=== PATIENT | female | born 1945 | race African-American/Black ===

== ENCOUNTER 2016-11-14 20:40 | Inpatient (IN) | payer MEDICARE ==
[~2016-11-14] VITALS: Ht 175.3 cm; Wt 115.2 kg
[~2016-11-14 20:40] MED LIST: AMOXICILLIN500 MG ORAL; AUGMENTIN 875-1 EAC1 ORAL; OFLOXACIN5 ML LEFT EYE; POLYTRIM OP SOL10 ML LEFT EYE; ROBITUSSIN COU118 M4 PO
[2016-11-14 21:19] VITALS: BP 168/75
--- NOTE | 2016-11-14 21:25 | Emergency Room Report ---
History of Present Illness General Chief Complaint: Fever Source: Patient Present Illness HPI Patient is a 71-year-old female presented after increased fever and generalized weakness. Patient gradual onset of symptoms. Patient reported having been seen in her physician's office earlier in the day. Patient prior history of type 2 diabetes. Patient stated that she been having increased generalized malaise. She denied any dysuria or abdominal pain. Patient reported having prior lab studies performed at her doctor's office. She does not have any results this time. She denies chest pain or shortness of breath. Allergies: Coded Allergies: No Known Allergies (Unverified , 06/02/15) Patient History Past Medical History: see triage record Pertinent Family History: DM Last Menstrual Period: NO MORE Now: No : 1 Reviewed Nursing Documentation: PMH: Agreed, PSxH: Agreed Nursing Documentation-PMH Hx Hypertension: Yes Hx Diabetes: Yes Review of Systems All Other Systems: negative except mentioned in HPI Physical Exam Vital Signs Date Time Temp Pulse Resp B/P Pulse Ox O2 Delivery O2 Flow Rate FiO2 11/14/16 20:51 103.1 93 18 171/77 95 Room Air Sp02 EP Interpretation: reviewed, normal General Appearance: normal inspection, well appearing, no apparent distress, alert, GCS 15 Head: atraumatic ENT: normal ENT inspection, hearing grossly normal, normal voice Neck: normal inspection, full range of motion, supple, no bony tend Respiratory: normal inspection, lungs clear, normal breath sounds, no respiratory distress, no retraction, no wheezing Cardiovascular #1: regular rate, rhythm, no edema Gastrointestinal: normal inspection, normal bowel sounds, non tender, soft, no guarding, no hernia Genitourinary: no CVA tenderness Musculoskeletal: back normal, normal range of motion, other - 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 Differential diagnosis included viral syndrome, urinary tract infection, sepsis, gastroenteritis, among others.Because of complexity of patient's case laboratory testing and imaging studies were ordered.A laboratory testing was notable for low white blood count with a bandemia. Patient was noted to have evidence of urinary infection with presumed sepsis. The patient's lactic acid level to be elevated.Dr. Gay was contacted for inpatient management. Labs Test 11/14/16 21:18 11/14/16 21:30 Urine Color Yellow Urine Appearance Clear Urine pH 5 (4.5-8.0) Urine Specific [place] 1.020 (1.005-1.035) Urine Protein 3+ (NEGATIVE) Urine Glucose (UA) Negative (NEGATIVE) Urine Ketones 1+ (NEGATIVE) Urine Occult Blood 4+ (NEGATIVE) Urine Nitrite Positive (NEGATIVE) Urine Bilirubin 2+ (NEGATIVE) Urine Ictotest Negative Urine Urobilinogen 8 MG/DL (0.0-1.0) Urine Leukocyte Esterase 3+ (NEGATIVE) Urine RBC 10-15 /HPF (0 - 2) Urine WBC 5-10 /HPF (0 - 2) Urine Squamous Epithelial Cells Few /LPF (NONE/OCC) Urine Amorphous Sediment Few /LPF (NONE) Urine Bacteria Moderate /HPF (NONE) White Blood Count 2.5 K/UL (4.8-10.8) Red Blood Count 4.54 M/UL (4.20-5.40) Hemoglobin 13.5 G/DL (12.0-16.0) Hematocrit 39.0 % (37.0-47.0) Mean Corpuscular Volume 86 FL (80-99) Mean Corpuscular Hemoglobin 29.7 PG (27.0-31.0) Mean Corpuscular Hemoglobin Concent 34.6 G/DL (32.0-36.0) Red Cell Distribution Width 12.8 % (11.6-14.8) Platelet Count 156 K/UL (150-450) Mean Platelet Volume 8.0 FL (6.5-10.1) Neutrophils (%) (Auto) % (45.0-75.0) Lymphocytes (%) (Auto) % (20.0-45.0) Monocytes (%) (Auto) % (1.0-10.0) Eosinophils (%) (Auto) % (0.0-3.0) Basophils (%) (Auto) % (0.0-2.0) Differential Total Cells Counted 100 Neutrophils % (Manual) 60 % (45-75) Lymphocytes % (Manual) 25 % (20-45) Monocytes % (Manual) 4 % (1-10) Eosinophils % (Manual) 1 % (0-3) Basophils % (Manual) 0 % (0-2) Band Neutrophils 10 % (0-8) Platelet Estimate Adequate Platelet Morphology Normal Red Blood Cell Morphology Normal Sodium Level 136 mEQ/L (135-145) Potassium Level 3.7 mEQ/L (3.4-4.9) Chloride Level 94 mEQ/L (98-107) Carbon Dioxide Level 26 mEQ/L (20-30) Anion Gap 16 (5-15) Blood Urea Nitrogen 7 mg/dL (7-23) Creatinine 0.7 mg/dL (0.5-0.9) Estimat Glomerular Filtration Rate mL/min (>60) Glucose Level 132 mg/dL (74-106) Lactic Acid Level 2.00 mmol/L (0.66-2.22) Calcium Level 9.5 mg/dL (8.6-10.2) Total Bilirubin 1.1 mg/dL (0.0-1.2) Direct Bilirubin 0.5 mg/dL (0.1-0.3) Aspartate Amino Transf (AST/SGOT) 96 U/L (5-40) Alanine Aminotransferase (ALT/SGPT) 85 U/L (3-33) Alkaline Phosphatase 165 U/L (35-104) Total Creatine Kinase 230 U/L (26-140) Creatine Kinase MB < 1.5 ng/mL (< 3.8) Creatine Kinase MB Relative Index Troponin I < 0.30 ng/mL (<=0.30) Pro-B-Type Natriuretic Peptide 87 pg/mL (0-125) Total Protein 7.8 g/dL (6.6-8.7) Albumin 4.0 g/dL (3.5-5.2) Globulin 3.8 g/dL Albumin/Globulin Ratio 1.0 (1.0-2.7) Last Vital Signs Date Time Temp Pulse Resp B/P Pulse Ox O2 Delivery O2 Flow Rate FiO2 11/14/16 21:19 103.1 89 17 168/75 96 Room Air Status: unchanged Disposition: ADMITTED INPATIENT Condition: Efe Staton Nov 14, 2016 21:25
[2016-11-14 21:43] LABS: APPEARANCE,URINE CLEAR; KETONES,URINE 1+ (NEGATIVE); LEUKOCYTE ESTERASE ,URINE 3+ (NEGATIVE); NITRITE,URINE POSITIVE (NEGATIVE); PH,URINE 5 (4.5-8.0); PROTEIN,URINE 3+ (NEGATIVE); UROBILINOGEN,URINE 8 MG/DL (0.0-1.0)
[2016-11-14 21:46] LABS: MEAN CORPUSCULAR HEMOGLOBIN 29.7 PG (27.0-31.0); MEAN CORPUSCULAR HGB CONC 34.6 G/DL (32.0-36.0); MEAN CORPUSCULAR VOLUME 86 FL (80-99); PLATELET COUNT 156 K/UL (150-450); RED BLOOD COUNT 4.54 M/UL (4.20-5.40); RED CELL DISTRIBUTION WIDTH 12.8 % (11.6-14.8); WHITE BLOOD COUNT 2.5 K/UL (4.8-10.8)
[2016-11-14 21:58] LABS: ALANINE AMINOTRANSFERASE 85 U/L (3-33); ANION GAP 16 (5-15); ASPARTATE AMINO TRANSFERASE 96 U/L (5-40); CALCIUM 9.5 mg/dL (8.6-10.2); CARBON DIOXIDE 26 mEQ/L (20-30); CHLORIDE 94 mEQ/L (98-107); CREATININE 0.7 mg/dL (0.5-0.9); HEMOLYSIS 1; POTASSIUM 3.7 mEQ/L (3.4-4.9); SODIUM 136 mEQ/L (135-145); TOTAL PROTEIN 7.8 g/dL (6.6-8.7); TROPONIN I < 0.30 ng/mL (<=0.30)
[2016-11-14 22:01] LABS: AMORPHOUS SEDIMENT,UR FEW /LPF; BACTERIA,URINE MODERATE /HPF; SQUAMOUS EPITHELIAL CELL,UR FEW /LPF (NONE/OCC)
[2016-11-14 22:02] LABS: ICTOTEST NEGATIVE
[2016-11-14 22:04] LABS: REFLEX LACTIC ACID YES OR NO YES
[2016-11-14 22:09] LABS: CKMB < 1.5 ng/mL (< 3.8)
[2016-11-14 22:18] LABS: BAND NEUTROPHILS % (MANUAL) 10 % (0-8); BASOPHILS % (MANUAL) 0 % (0-2); EOSINOPHILS % (MANUAL) 1 % (0-3); LYMPHOCYTES % (MANUAL) 25 % (20-45); NEUTROPHILS % (MANUAL) 60 % (45-75); PLATELET ESTIMATE ADEQUATE; PLATELET MORPHOLOGY NORMAL; TOTAL CELLS COUNTED 100
[2016-11-14 22:19] LABS: BILIRUBIN,DIRECT 0.5 mg/dL (0.1-0.3)
[2016-11-14] MEDS ORDERED: cefTRIAXone 1 GM in NS 55 ML IVPB ONE (23:00)
[2016-11-14 23:15] VITALS: BP 141/79
[2016-11-15] VITALS (8 sets, daily range): BP systolic 120–151; BP diastolic 55–92
[2016-11-15] MEDS ORDERED: AMLODIPINE BESY10 MG ORAL (00:59)
[2016-11-15] MEDS ORDERED: CLONIDINE0.1 MG GT (00:59)
[2016-11-15] MEDS ORDERED: KLONOPIN1 MG ORAL (00:59)
[2016-11-15] MEDS ORDERED: METFORMIN HCL1000 M1 ORAL (00:59)
[2016-11-15] MEDS ORDERED: LOPRESSOR25 M1 ORAL (00:59)
[2016-11-15] MEDS ORDERED: SYNTHROID50 MCG ORAL (01:00)
[2016-11-15] MEDS ORDERED: XALATAN2.5 ML BOTH EYES (01:00)
[2016-11-15] MEDS ORDERED: Zosyn 3.375gm inj ONE (03:42)
[2016-11-15] MEDS ORDERED: Piperacillin/Tazobactam 3.375 GM in D5W 110 ML IVPB SCH (04:00)
[2016-11-15] MEDS: NovoLOG Insulin Flexpen SUBQ SCH ×4 (06:02→21:00)
[2016-11-15] MEDS ORDERED: NovoLOG Insulin Flexpen SUBQ SCH (06:30)
[2016-11-15] MEDS: Lactobacillus-GG tablet ORAL SCH ×2 (08:30→17:07)
--- NOTE | 2016-11-15 09:19 | Diagnostic Imaging Report ---
Indications: Shortness of breath Technique: Portable AP chest Findings: Comparison: 08/25/2013 Inspiratory effort has mildly decreased. Size of the cardiac silhouette has apparently increased. Pulmonary vasculature remains within normal limits. Lungs and pleura remain clear. 2 cm calcified nodule in region of azygos vein, mild calcification of aortic arch unchanged. IMPRESSION: Are mildly increased heart size may be technically related. Worsening cardiomyopathy versus developing acute heart failure must be considered. Upright PA and lateral chest radiographs with better inspiratory effort and optimal technique recommended for more complete evaluation. Otherwise no evidence of acute cardiopulmonary disease, unchanged Stable chronic changes as described
[2016-11-15 11:04] LABS: MEAN CORPUSCULAR HEMOGLOBIN 28.5 PG (27.0-31.0); MEAN CORPUSCULAR HGB CONC 32.5 G/DL (32.0-36.0); MEAN CORPUSCULAR VOLUME 88 FL (80-99); MEAN PLATELET VOLUME 7.2 FL (6.5-10.1); PLATELET COUNT 159 K/UL (150-450); RED BLOOD COUNT 4.47 M/UL (4.20-5.40); WHITE BLOOD COUNT 2.6 K/UL (4.8-10.8)
[2016-11-15 11:36] LABS: BAND NEUTROPHILS % (MANUAL) 0 % (0-8); BASOPHILS % (MANUAL) 0 % (0-2); EOSINOPHILS % (MANUAL) 0 % (0-3); LYMPHOCYTES % (MANUAL) 35 % (20-45); NEUTROPHILS % (MANUAL) 61 % (45-75); PLATELET ESTIMATE ADEQUATE; PLATELET MORPHOLOGY NORMAL; TOTAL CELLS COUNTED 100
[2016-11-15 11:37] LABS: ALANINE AMINOTRANSFERASE 73 U/L (3-33); ALBUMIN/GLOBULIN RATIO 0.9 (1.0-2.7); ANION GAP 14 (5-15); ASPARTATE AMINO TRANSFERASE 67 U/L (5-40); CALCIUM 9.1 mg/dL (8.6-10.2); CARBON DIOXIDE 27 mEQ/L (20-30); CHLORIDE 97 mEQ/L (98-107); CREATININE 0.7 mg/dL (0.5-0.9); HEMOLYSIS 39; POTASSIUM 3.8 mEQ/L (3.4-4.9); SODIUM 138 mEQ/L (135-145); TOTAL PROTEIN 7.1 g/dL (6.6-8.7)
[2016-11-15] MEDS: Piperacillin/Tazobactam 3.375 GM in D5W 110 ML IVPB SCH ×2 (13:54→21:59)
[2016-11-15] MEDS ORDERED: Tubing IV Secondary IV ONE (14:53)
[2016-11-15] MEDS: Heparin 5000 units/ml inj SUBQ SCH (21:17)
[2016-11-16 04:00] VITALS: BP 151/70
--- NOTE | 2016-11-16 04:18 | History and Physical Report ---
DATE OF ADMISSION: 11/14/2016 CHIEF COMPLAINT: Generalized weakness and viral syndrome. HISTORY OF PRESENT ILLNESS: The patient is a pleasant 71-year-old female. She has a history of diabetes and hypertensive heart disease. She initially saw Cardiology several days prior to admission with complaints of URI symptoms. She was given a Z-Dwight, asked to drink more fluids and rest. Her symptoms did not improve. presented to emergency room. On evaluation there, she was noted to have leukopenia and elevated liver function tests. The patient denied any abdominal pain. She did have a few white cells in her urine lab abnormalities improve with outpatient therapy. She has now been admitted for further evaluation and care. PAST MEDICAL HISTORY: As above. PAST SURGICAL HISTORY: None. CURRENT MEDICATIONS: Reconciled and reviewed. ALLERGIES: None. FAMILY HISTORY: None. SOCIAL HISTORY: There is no known history of tobacco, ethanol, or drugs. REVIEW OF SYSTEMS: General: Positive for fevers and chills. HEENT: No headaches or visual changes. Cardiopulmonary: No chest pain or shortness of breath. Gastrointestinal: No nausea or vomiting. Genitourinary: No urgency or frequency. Musculoskeletal: No joint pain or swelling. Neurologic: No evidence of seizures. PHYSICAL EXAMINATION: VITAL SIGNS: Temperature 98 degrees, blood pressure 146/77, pulse 92, and respirations 19. GENERAL: The patient is a well-developed female, in no apparent distress. HEART: Regular rate and rhythm. LUNGS: Clear. ABDOMEN: Soft. EXTREMITIES: Without clubbing, cyanosis, or edema. LABORATORY DATA: UA showed 5 to 10 WBCs. White count was 2.5. Sodium is 136, potassium 3.7, chloride 94, bicarbonate 26, BUN is 7, and creatinine was 0.7. AST was 96 and ALT was 85. Alkaline phosphatase of 165. ASSESSMENT: This is a pleasant female, who complains of generalized malaise and weakness, unclear etiology, may be secondary to viral syndrome and dehydration. She also has elevated liver function tests, unclear etiology, cannot rule out acute hepatitis. PLAN: Intravenous hydration and empiric antibiotics. Check an ultrasound of the abdomen. Monitor liver function test. Cardiology followup regarding the patient's blood pressure management. Continue outpatient diabetic regimen. Brando Malone M.D. DR: NOELLE JOB#: [id number] CC:
[2016-11-16] MEDS: Piperacillin/Tazobactam 3.375 GM in D5W 110 ML IVPB SCH ×3 (05:48→21:27)
[2016-11-16] MEDS: NovoLOG Insulin Flexpen SUBQ SCH ×4 (05:53→21:00)
[2016-11-16] MEDS: Lactobacillus-GG tablet ORAL SCH ×2 (07:54→17:24)
[2016-11-16] MEDS: Heparin 5000 units/ml inj SUBQ SCH ×2 (07:57→21:31)
[2016-11-16 08:00] VITALS: BP 125/65
--- NOTE | 2016-11-16 08:07 | General Progress Note ---
Assessment/Plan Problem List: (1) Fever ICD Codes: R50.9 - Fever, unspecified SNOMED: 240983837 (2) Sepsis ICD Codes: A41.9 - Sepsis, unspecified organism SNOMED: 09214696 Status: stable Assessment/Plan check abd gonzalo- results stil pending ct abd abx follow up cultures ivf pain rx advance diet? Subjective ROS Limited/Unobtainable: No Constitutional: Reports: fever, malaise, weakness HEENT: Reports: no symptoms Cardiovascular: Reports: no symptoms Gastrointestinal/Abdominal: Reports: abdominal pain Genitourinary: Reports: no symptoms Neurologic/Psychiatric: Reports: no symptoms Endocrine: Reports: no symptoms Hematologic/Lymphatic: Reports: no symptoms Allergies: Coded Allergies: No Known Allergies (Unverified , 06/02/15) All Systems: reviewed and negative except above Subjective feels "a little better." less abd pain. +low grade fever. all cultures negative so far. abd gonzalo not back yet Objective Last 24 Hour Vital Signs Date Time Temp Pulse Resp B/P Pulse Ox O2 Delivery O2 Flow Rate FiO2 11/16/16 04:00 100.0 73 16 151/70 98 Room Air 11/15/16 23:40 99.7 87 17 142/92 93 Room Air 11/15/16 19:42 100.2 75 16 131/56 93 Room Air 11/15/16 17:40 98.0 11/15/16 16:00 98.0 74 19 146/77 97 Room Air 11/15/16 11:42 98.2 67 19 120/55 98 Room Air 11/15/16 08:06 97.7 72 19 128/66 95 Room Air Intake and Output 11/15/16 11/16/16 19:00 07:00 Intake Total 795 ml 952.0 ml Balance 795 ml 952.0 ml Intake Oral 420 ml IV Total 375 ml 952.0 ml # Voids 3 2 Laboratory Tests 11/15/16 09:30: White Blood Count 2.6L, Red Blood Count 4.47, Hemoglobin 12.7, Hematocrit 39.2, Mean Corpuscular Volume 88, Mean Corpuscular Hemoglobin 28.5, Mean Corpuscular Hemoglobin Concent 32.5, Red Cell Distribution Width 13.0, Platelet Count 159, Mean Platelet Volume 7.2, Neutrophils (%) (Auto) , Lymphocytes (%) (Auto) , Monocytes (%) (Auto) , Eosinophils (%) (Auto) , Basophils (%) (Auto) , Differential Total Cells Counted 100, Neutrophils % (Manual) 61, Lymphocytes % ( Manual) 35, Monocytes % (Manual) 4, Eosinophils % (Manual) 0, Basophils % ( Manual) 0, Band Neutrophils 0, Platelet Estimate Adequate, Platelet Morphology Normal, Red Blood Cell Morphology Normal, Sodium Level 138, Potassium Level 3.8 , Chloride Level 97L, Carbon Dioxide Level 27, Anion Gap 14, Blood Urea Nitrogen 7, Creatinine 0.7, Estimat Glomerular Filtration Rate , Glucose Level 116H, Lactic Acid Level 1.00, Calcium Level 9.1, Total Bilirubin 1.0, Aspartate Amino Transf (AST/SGOT) 67H, Alanine Aminotransferase (ALT/SGPT) 73H, Alkaline Phosphatase 142H, Total Protein 7.1, Albumin 3.5, Globulin 3.6, Albumin/ Globulin Ratio 0.9L, Thyroid Stimulating Hormone (TSH) 3.260 Height (Feet): 5 Height (Inches): 9.00 Weight (Pounds): 254 General Appearance: WD/WN, alert Neck: supple Cardiovascular: regular rhythm Respiratory/Chest: lungs clear, normal breath sounds, no respiratory distress, no accessory muscle use Abdomen: normal bowel sounds, non tender, soft, no organomegaly, no mass Edema: no edema noted Arm (L), no edema noted Arm (R), no edema noted Leg (L), no edema noted Leg (R), no edema noted Pedal (L), no edema noted Pedal (R), no edema noted Generalized OSBALDO AVENDANO Nov 16, 2016 08:07
[2016-11-16 12:00] VITALS: BP 141/66
[2016-11-16] MEDS: Artificial Tears 1.4% Op Soln LEFT EYE PRN (14:56)
[2016-11-16 16:00] VITALS: BP 148/79
[2016-11-16 18:04] LABS: MEAN CORPUSCULAR HEMOGLOBIN 29.3 PG (27.0-31.0); MEAN CORPUSCULAR HGB CONC 33.8 G/DL (32.0-36.0); MEAN CORPUSCULAR VOLUME 87 FL (80-99); MEAN PLATELET VOLUME 7.2 FL (6.5-10.1); PLATELET COUNT 160 K/UL (150-450); RED CELL DISTRIBUTION WIDTH 12.7 % (11.6-14.8); WHITE BLOOD COUNT 3.3 K/UL (4.8-10.8)
[2016-11-16 20:04] VITALS: BP 144/64
[2016-11-16 20:56] LABS: BAND NEUTROPHILS % (MANUAL) 7 % (0-8); EOSINOPHILS % (MANUAL) 3 % (0-3); LYMPHOCYTES % (MANUAL) 27 % (20-45); NEUTROPHILS % (MANUAL) 58 % (45-75); PLATELET MORPHOLOGY NORMAL; TOTAL CELLS COUNTED 100
[2016-11-16 20:57] LABS: BASOPHILS % (MANUAL) 0 % (0-2); PLATELET ESTIMATE ADEQUATE
[2016-11-16] MEDS: guaiFENesin w/Codeine 5ml Liq ud ORAL PRN (21:33)
[2016-11-17 00:14] VITALS: BP 127/85
[2016-11-17 03:33] VITALS: BP 145/59
[2016-11-17] MEDS: Piperacillin/Tazobactam 3.375 GM in D5W 110 ML IVPB SCH ×3 (06:28→21:37)
[2016-11-17] MEDS: NovoLOG Insulin Flexpen SUBQ SCH ×4 (06:30→20:51)
[2016-11-17 07:54] LABS: BILIRUBIN,DIRECT 0.4 mg/dL (0.1-0.3); TOTAL PROTEIN 6.8 g/dL (6.6-8.7)
[2016-11-17 07:55] LABS: ALANINE AMINOTRANSFERASE 58 U/L (3-33); ALBUMIN/GLOBULIN RATIO 0.9 (1.0-2.7); ANION GAP 15 (5-15); ASPARTATE AMINO TRANSFERASE 55 U/L (5-40); CALCIUM 8.6 mg/dL (8.6-10.2); CARBON DIOXIDE 28 mEQ/L (20-30); CHLORIDE 94 mEQ/L (98-107); CREATININE 0.7 mg/dL (0.5-0.9); HEMOLYSIS 1; POTASSIUM 3.3 mEQ/L (3.4-4.9); SODIUM 137 mEQ/L (135-145)
[2016-11-17 08:07] VITALS: BP 128/53
--- NOTE | 2016-11-17 08:25 | Diagnostic Imaging Report ---
Indication: Abdominal pain Technique: Spiral acquisitions obtained through the abdomen and pelvis. Patient drank a limited amount of oral contrast No IV contrast utilized, per referring physician request.. Multiplanar reconstructions were generated. Total dose length product 1191 mGycm. CTDIvol(s) 19 mGy. Dose reduction achieved using automated exposure control Comparison: 10/05/2013 Findings: The appendix is normal there are scattered diverticula. No evidence of diverticulitis. No small bowel distention. No free or loculated intraperitoneal air or fluid is evident. There may be a small sliding-type hiatal hernia. Stomach, duodenum are unremarkable. Lack of IV contrast limits assessment of the solid organs. A calcification is seen within the liver. Gallbladder contains gallstones, also previously demonstrated. No biliary ductal dilatation. Pancreas is unremarkable. A calcification is seen within the spleen. The adrenals are unremarkable. The left kidney demonstrates a subcentimeter low-attenuation lesion in the upper pole, best appreciated on the coronal views, also evident previously in retrospect. No pelvic mass or adenopathy. The uterus is absent, presumably postsurgically. The bladder is unremarkable. The included lung bases are clear. Heart is borderline enlarged. The bones demonstrate degenerative proliferative changes of the thoracic and lumbar spine. Impression: No acute abnormality Cholelithiasis, also previously described Borderline cardiomegaly Evidence of old granulomatous disease within the liver and spleen Diverticulosis. No evidence of diverticulitis Equivocal small sliding-type hiatal hernia incidentally noted Subcentimeter low-attenuation lesion in the left renal upper pole, too small to characterize, most likely benign simple cortical cyst, also evident previously This agrees with the preliminary interpretation provided overnight by Dr. Kang The CT scanner at [facility] is accredited by the [employer] and the scans are performed using protocols designed to limit radiation exposure to as low as reasonably achievable to attain images of sufficient resolution adequate for diagnostic evaluation.
--- NOTE | 2016-11-17 08:32 | General Progress Note ---
Assessment/Plan Problem List: (1) Fever ICD Codes: R50.9 - Fever, unspecified SNOMED: 429812483 (2) Sepsis ICD Codes: A41.9 - Sepsis, unspecified organism SNOMED: 81227790 Status: stable, not improved Assessment/Plan ID eval for fevers check duplex legs abx follow up cultures ivf pain rx advance diet Subjective ROS Limited/Unobtainable: No Constitutional: Reports: malaise, weakness HEENT: Reports: no symptoms Cardiovascular: Reports: no symptoms Respiratory: Reports: no symptoms Gastrointestinal/Abdominal: Reports: abdominal pain Genitourinary: Reports: no symptoms Neurologic/Psychiatric: Reports: no symptoms Endocrine: Reports: no symptoms Hematologic/Lymphatic: Reports: anemia Allergies: Coded Allergies: No Known Allergies (Unverified , 06/02/15) All Systems: reviewed and negative except above Subjective continues to have intermittent fevers. all cultures negative so far.CT abd negative. on ivf. on clears. Objective Last 24 Hour Vital Signs Date Time Temp Pulse Resp B/P Pulse Ox O2 Delivery O2 Flow Rate FiO2 11/17/16 08:07 97.7 87 21 128/53 96 Room Air 11/17/16 04:29 99.5 11/17/16 03:33 100.2 86 18 145/59 96 Room Air 11/17/16 00:14 97.9 92 18 127/85 95 Room Air 11/16/16 20:04 99.1 72 18 144/64 97 Room Air 11/16/16 16:00 100.9 76 20 148/79 97 Room Air 11/16/16 12:00 97.9 73 20 141/66 98 Room Air Intake and Output 11/16/16 11/17/16 19:00 07:00 Intake Total 905.0 ml 1110.0 ml Balance 905.0 ml 1110.0 ml Intake Oral 240 ml 250 ml IV Total 665.0 ml 860.0 ml # Voids 5 4 # Bowel Movements 5 2 Laboratory Tests 11/16/16 17:30: White Blood Count 3.3L, Red Blood Count 4.20, Hemoglobin 12.3, Hematocrit 36.4L , Mean Corpuscular Volume 87, Mean Corpuscular Hemoglobin 29.3, Mean Corpuscular Hemoglobin Concent 33.8, Red Cell Distribution Width 12.7, Platelet Count 160, Mean Platelet Volume 7.2, Neutrophils (%) (Auto) , Lymphocytes (%) ( Auto) , Monocytes (%) (Auto) , Eosinophils (%) (Auto) , Basophils (%) (Auto) , Differential Total Cells Counted 100, Neutrophils % (Manual) 58, Lymphocytes % ( Manual) 27, Monocytes % (Manual) 5, Eosinophils % (Manual) 3, Basophils % ( Manual) 0, Band Neutrophils 7, Platelet Estimate Adequate, Platelet Morphology Normal, Red Blood Cell Morphology Normal 11/17/16 06:03: Sodium Level 137, Potassium Level 3.3L, Chloride Level 94L, Carbon Dioxide Level 28, Anion Gap 15, Blood Urea Nitrogen 5L, Creatinine 0.7, Estimat Glomerular Filtration Rate , Glucose Level 118H, Calcium Level 8.6, Total Bilirubin 1.0, Direct Bilirubin 0.4H, Aspartate Amino Transf (AST/SGOT) 54H, Alanine Aminotransferase (ALT/SGPT) 57H, Alkaline Phosphatase 124H, Total Protein 6.8, Albumin 3.4L, Globulin 3.6, Albumin/Globulin Ratio 0.9L Height (Feet): 5 Height (Inches): 9.00 Weight (Pounds): 254 Objective General Appearance: WD/WN, alert Neck: supple Cardiovascular: regular rhythm Respiratory/Chest: lungs clear, normal breath sounds, no respiratory distress, no accessory muscle use Abdomen: normal bowel sounds, non tender, soft, no organomegaly, no mass Edema: no edema noted Arm (L), no edema noted Arm (R), no edema noted Leg (L), no edema noted Leg (R), no edema noted Pedal (L), no edema noted Pedal (R), no edema noted Generalized OSBALDO AVENDANO Nov 17, 2016 08:32
[2016-11-17] MEDS: Lactobacillus-GG tablet ORAL SCH ×2 (09:09→16:54)
[2016-11-17] MEDS: guaiFENesin w/Codeine 5ml Liq ud ORAL PRN (09:09)
[2016-11-17] MEDS: Heparin 5000 units/ml inj SUBQ SCH ×2 (09:14→20:50)
--- NOTE | 2016-11-17 09:42 | Diagnostic Imaging Report ---
Indications: Abdominal pain Technique: Transabdominal real-time grayscale and duplex Doppler imaging of the upper abdomen and retroperitoneum was performed. Findings: Comparison: Noncontrast CT abdomen pelvis 10/05/2013. Liver 19 cm in length. Diffusely coarsened and increased parenchymal echogenicity. No focal lesion identified. Surface contour micronodularity excludable.. Gallbladder contains multiple small echogenic shadowing foci. No mural thickening or adjacent fluid collections. Sonographic Phelps sign reported as negative.. Bile ducts normal caliber. Common bile duct 6 mm. Pancreas head and body unremarkable; tail obscured. Spleen unremarkable. Right kidney unremarkable. Left kidney unremarkable. Abdominal aorta, intrahepatic portion of inferior vena cava patent, normal caliber. Duplex Doppler imaging demonstrates antegrade flow in splenic, portal, hepatic veins. No ascites. IMPRESSION: Hepatomegaly with parenchymal changes suggesting chronic hepatocellular disease, nonspecific. Associated cirrhosis not excludable. Correlate clinically. Cholelithiasis. No evidence of acute cholecystitis. Pancreatic tail obscured Remainder of exam unremarkable.
[2016-11-17 11:52] VITALS: BP 154/70
[2016-11-17] MEDS: Artificial Tears 1.4% Op Soln LEFT EYE PRN (15:02)
[2016-11-17 15:59] VITALS: BP 167/71
--- NOTE | 2016-11-17 16:39 | Consultation ---
DATE OF CONSULTATION: 11/17/2016 INFECTIOUS DISEASE CONSULTATION This consult is for coverage of Dr. Moran. PRIMARY ATTENDING PHYSICIAN: Jorge Gay M.D. REASON FOR CONSULT: Sepsis, fever, and leukopenia. HISTORY OF PRESENT ILLNESS: The patient is a 71-year-old female admitted on 11/14/2016 from home. The patient had upper respiratory symptoms before admission, had a visit to the primary care doctor and got Zithromax, but the condition did not improve. She developed fever one day before admission. She had some runny nose and dry coughing and had abnormal labs at the time of admission including leukopenia and elevated transaminase. PAST MEDICAL HISTORY: Significant for diabetes mellitus type 2 and hypertension. The patient is getting metformin at home for diabetes. PAST SURGICAL HISTORY: She had a history of hysterectomy. MEDICATIONS: Sodium chloride, artificial tears, Robitussin, heparin, Xalatan eye drops, Zosyn, insulin, lactobacillus, lorazepam, Tylenol, and clonidine. ALLERGIES: No known drug allergy. SOCIAL HISTORY: Lives at home with daughter. No history of alcohol, drug abuse, or smoking. The patient has a niece that has respiratory symptoms. REVIEW OF SYSTEMS: Runny nose, dry cough, and fever. No nausea. No vomiting. No chest pain. No problem passing urine. PHYSICAL EXAMINATION: VITAL SIGNS: Temperature 97.7 degrees, T-max is 100.9 degrees, blood pressure 128/53, and pulse is 87. HEAD AND NECK: Poor dentition with multiple decayed teeth. HEART: Regular. LUNGS: Clear. ABDOMEN: Obese and soft. EXTREMITIES: No edema. NEUROLOGIC: Awake, alert, and oriented x3, ambulatory. LABORATORY AND DIAGNOSTIC DATA: WBC 3.3, hemoglobin 12.3, hematocrit 36.4, and platelets 160,000. Sodium 137, potassium 3.3, chloride 94, bicarbonate 28, BUN 5, creatinine 0.7, and glucose 118. AST 54, ALT 57 and alkaline phosphatase is 124. Influenza A and B were negative. Blood culture x2 were negative. Urine culture showed mixed el, mixed gram-positive organism. Urine was positive for WBC 5-10, RBC of 10-15, and nitrates were positive. The patient had CT scan of the abdomen and pelvic that showed cholelithiasis and diverticulosis. Also had abdominal ultrasound that showed hepatomegaly and parenchymal changes in liver. IMPRESSION: Sepsis with fever and leukopenia. The patient may have some upper respiratory infection, has elevated transaminase level we will try to rule out hepatitis, has hepatomegaly, parenchymal liver disease, has cholelithiasis without cholecystitis, has diverticulosis, has diabetes mellitus type 2, and hypertension. RECOMMENDATION: We will continue Zosyn. We will followup hepatitis panel. We will follow up the culture. I thank Dr. Malone for involving me in the care of this patient. Bobby Dietrich M.D. DR: RACHEL JOB#: [id number] CC:
[2016-11-17 20:00] VITALS: BP 141/61
[2016-11-18] VITALS: BP 141/67
[2016-11-18 03:59] VITALS: BP 147/72
[2016-11-18] MEDS: Piperacillin/Tazobactam 3.375 GM in D5W 110 ML IVPB SCH ×3 (06:16→21:32)
[2016-11-18] MEDS: NovoLOG Insulin Flexpen SUBQ SCH ×4 (06:22→20:37)
[2016-11-18 07:53] VITALS: BP 141/61
[2016-11-18] MEDS: Lactobacillus-GG tablet ORAL SCH ×2 (08:13→17:13)
[2016-11-18] MEDS: Heparin 5000 units/ml inj SUBQ SCH ×2 (08:16→20:38)
--- NOTE | 2016-11-18 08:18 | General Progress Note ---
Assessment/Plan Problem List: (1) Fever ICD Codes: R50.9 - Fever, unspecified SNOMED: 766690114 (2) Sepsis ICD Codes: A41.9 - Sepsis, unspecified organism SNOMED: 67083952 Status: stable, not improved Assessment/Plan ID w/u check duplex legs abx follow up cultures ivf pain rx advance diet not stable for dc with fever Subjective ROS Limited/Unobtainable: No Constitutional: Reports: fever, malaise, weakness HEENT: Reports: no symptoms Cardiovascular: Reports: no symptoms Respiratory: Reports: no symptoms Gastrointestinal/Abdominal: Reports: no symptoms Genitourinary: Reports: no symptoms Neurologic/Psychiatric: Reports: no symptoms Endocrine: Reports: no symptoms Hematologic/Lymphatic: Reports: no symptoms Allergies: Coded Allergies: No Known Allergies (Unverified , 06/02/15) All Systems: reviewed and negative except above Subjective continues to have intermittent fevers. all cultures negative so far.CT abd negative. on ivf. on regular diet. ID noted. on iv abx. wants to go home Objective Last 24 Hour Vital Signs Date Time Temp Pulse Resp B/P Pulse Ox O2 Delivery O2 Flow Rate FiO2 11/18/16 07:53 99.9 82 19 141/61 97 Room Air 11/18/16 03:59 97.7 77 18 147/72 96 Room Air 11/18/16 01:08 100.2 11/18/16 00:00 101.1 76 18 141/67 98 Room Air 11/17/16 20:00 99.9 83 20 141/61 95 Room Air 11/17/16 16:50 167/71 11/17/16 15:59 98.8 80 19 167/71 97 Room Air 11/17/16 11:52 99.5 72 21 154/70 99 Room Air Intake and Output 11/17/16 11/18/16 19:00 07:00 Intake Total 1190.0 ml 1485.0 ml Balance 1190.0 ml 1485.0 ml Intake Oral 720 ml 600 ml IV Total 470.0 ml 885.0 ml # Voids 4 4 # Bowel Movements 1 Height (Feet): 5 Height (Inches): 9.00 Weight (Pounds): 254 Objective General Appearance: WD/WN, alert Neck: supple Cardiovascular: regular rhythm Respiratory/Chest: lungs clear, normal breath sounds, no respiratory distress, no accessory muscle use Abdomen: normal bowel sounds, non tender, soft, no organomegaly, no mass Edema: no edema noted Arm (L), no edema noted Arm (R), no edema noted Leg (L), no edema noted Leg (R), no edema noted Pedal (L), no edema noted Pedal (R), no edema noted Generalized OSBALDO AVENDANO Nov 18, 2016 08:18
[2016-11-18 11:48] VITALS: BP 139/57
[2016-11-18 16:17] VITALS: BP 149/72
[2016-11-18 20:00] VITALS: BP 138/61
[2016-11-18] MEDS ORDERED: KCl 10% 20 mEq/15ml liquid ORAL ONE (23:00)
[2016-11-18] MEDS: TraZODone HCl 25 mg tablet ORAL SCH (23:45)
[2016-11-19] VITALS: BP 140/63
[2016-11-19 04:00] VITALS: BP 157/89
--- NOTE | 2016-11-19 04:48 | Progress Note ---
DATE: 11/18/2016 CARDIOLOGY PROGRESS NOTE SUBJECTIVE: The patient is very anxious. She cannot sleep. She wants to leave the hospital. She complains of shortness of breath. OBJECTIVE: VITAL SIGNS: Blood pressure 141/61, pulse 82, and respirations 19. NECK: Supple. LUNGS: Clear. CARDIAC: Regular. Normal S1 and S2 with a fourth heart sound. ABDOMEN: Soft. EXTREMITIES: Trace dependent lower extremity edema. LABORATORY AND DIAGNOSTIC DATA: CT of the abdomen was unremarkable. Laboratories were reviewed. IMPRESSION: 1. Leukopenia. 2. Fevers. 3. Transaminitis. 4. Dyspnea. 5. Hypertensive heart disease. 6. Type 2 diabetes mellitus. PLAN: 1. Empiric antibiotics. 2. Venous duplex study. 3. DVT prophylaxis. 4. Antipyretics. 5. Cautious hydration. 6. Insulin coverage by sliding scale. 7. Angiolytics. Jorge Gay M.D. DR: LILLI JOB#: [id number] CC:
[2016-11-19] MEDS: Piperacillin/Tazobactam 3.375 GM in D5W 110 ML IVPB SCH ×3 (05:57→20:54)
[2016-11-19] MEDS: NovoLOG Insulin Flexpen SUBQ SCH ×4 (06:33→20:53)
[2016-11-19 07:52] LABS: BASOPHILS % (AUTO) 1.2 % (0.0-2.0); EOSINOPHILS % (AUTO) 1.5 % (0.0-3.0); LYMPHOCYTES % (AUTO) 20.9 % (20.0-45.0); MEAN CORPUSCULAR HEMOGLOBIN 27.8 PG (27.0-31.0); MEAN CORPUSCULAR HGB CONC 32.1 G/DL (32.0-36.0); MEAN CORPUSCULAR VOLUME 87 FL (80-99); MONOCYTES % (AUTO) 5.6 % (1.0-10.0); NEUTROPHILS % (AUTO) 70.9 % (45.0-75.0); PLATELET COUNT 289 K/UL (150-450); RED BLOOD COUNT 4.55 M/UL (4.20-5.40); RED CELL DISTRIBUTION WIDTH 12.8 % (11.6-14.8); WHITE BLOOD COUNT 5.7 K/UL (4.8-10.8)
[2016-11-19 08:15] VITALS: BP 150/59
[2016-11-19 08:16] LABS: ALANINE AMINOTRANSFERASE 53 U/L (3-33); ALBUMIN/GLOBULIN RATIO 0.8 (1.0-2.7); ANION GAP 16 (5-15); ASPARTATE AMINO TRANSFERASE 52 U/L (5-40); CALCIUM 8.8 mg/dL (8.6-10.2); CARBON DIOXIDE 26 mEQ/L (20-30); CHLORIDE 88 mEQ/L (98-107); CREATININE 0.7 mg/dL (0.5-0.9); HEMOLYSIS 7; POTASSIUM 3.6 mEQ/L (3.4-4.9); SODIUM 130 mEQ/L (135-145); TOTAL PROTEIN 7.4 g/dL (6.6-8.7)
[2016-11-19] MEDS: Lactobacillus-GG tablet ORAL SCH ×2 (09:34→17:59)
[2016-11-19] MEDS: Heparin 5000 units/ml inj SUBQ SCH ×2 (09:35→20:52)
--- NOTE | 2016-11-19 11:19 | Diagnostic Imaging Report ---
Indication: Chest pain Technique: One view of the chest Comparison: 11/14/2016 Findings: Less optimal inspiration currently, with some crowding of bronchovascular markings. There is some atelectasis at the right lung base. No definite acute infiltrates or effusions. Heart size is upper limits of normal Impression: Hypoventilatory exam. No definite acute process
--- NOTE | 2016-11-19 11:56 | Infectious Diseases Prog Note ---
Assessment/Plan Assessment/Plan antibiotics : zosyn A 1. UTI 2. cholangitis 3. DM 4. HTN P 1. continue zosyn 2. will follow up cultures 3. suggest GI evaluation Subjective Constitutional: Denies: chills, fever HEENT: Reports: congestion Respiratory: Denies: dry cough, shortness of breath Gastrointestinal/Abdominal: Denies: diarrhea, nausea, vomiting Musculoskeletal: Reports: pain Allergies: Coded Allergies: No Known Allergies (Unverified , 06/02/15) Objective Vital Signs Last 24 Hour Vital Signs Date Time Temp Pulse Resp B/P Pulse Ox O2 Delivery O2 Flow Rate FiO2 11/19/16 08:15 97.7 90 20 150/59 95 Room Air 11/19/16 04:00 98.6 94 20 157/89 93 Room Air 11/19/16 00:00 99.0 78 20 140/63 96 Room Air 11/18/16 20:00 99.1 79 20 138/61 95 Room Air 11/18/16 16:17 98.2 81 20 149/72 97 Room Air Height (Feet): 5 Height (Inches): 9.00 Weight (Pounds): 254 Respiratory/Chest: lungs clear Cardiovascular: normal rate, regular rhythm, no gallop/murmur Abdomen: soft, non tender Extremities: other - + edema Microbiology Date/Time Source Procedure Growth Status 11/16/16 17:45 Blood Blood Culture - Preliminary NO GROWTH AFTER 48 HOURS Resulted 11/16/16 17:30 Blood Blood Culture - Preliminary NO GROWTH AFTER 48 HOURS Resulted Laboratory Tests Test 11/19/16 06:30 White Blood Count 5.7 K/UL (4.8-10.8) Red Blood Count 4.55 M/UL (4.20-5.40) Hemoglobin 12.6 G/DL (12.0-16.0) Hematocrit 39.4 % (37.0-47.0) Mean Corpuscular Volume 87 FL (80-99) Mean Corpuscular Hemoglobin 27.8 PG (27.0-31.0) Mean Corpuscular Hemoglobin Concent 32.1 G/DL (32.0-36.0) Red Cell Distribution Width 12.8 % (11.6-14.8) Platelet Count 289 K/UL (150-450) Mean Platelet Volume 7.0 FL (6.5-10.1) Neutrophils (%) (Auto) 70.9 % (45.0-75.0) Lymphocytes (%) (Auto) 20.9 % (20.0-45.0) Monocytes (%) (Auto) 5.6 % (1.0-10.0) Eosinophils (%) (Auto) 1.5 % (0.0-3.0) Basophils (%) (Auto) 1.2 % (0.0-2.0) Sodium Level 130 mEQ/L (135-145) L Potassium Level 3.6 mEQ/L (3.4-4.9) Chloride Level 88 mEQ/L (98-107) L Carbon Dioxide Level 26 mEQ/L (20-30) Anion Gap 16 (5-15) H Blood Urea Nitrogen 6 mg/dL (7-23) L Creatinine 0.7 mg/dL (0.5-0.9) Estimat Glomerular Filtration Rate mL/min (>60) Glucose Level 122 mg/dL (74-106) H Calcium Level 8.8 mg/dL (8.6-10.2) Magnesium Level 2.1 mg/dL (1.7-2.5) Total Bilirubin 0.9 mg/dL (0.0-1.2) Aspartate Amino Transf (AST/SGOT) 52 U/L (5-40) H Alanine Aminotransferase (ALT/SGPT) 53 U/L (3-33) H Alkaline Phosphatase 108 U/L (35-104) H Total Protein 7.4 g/dL (6.6-8.7) Albumin 3.5 g/dL (3.5-5.2) Globulin 3.9 g/dL Albumin/Globulin Ratio 0.8 (1.0-2.7) BI MURCIA Nov 19, 2016 11:56
[2016-11-19 12:10] VITALS: BP 132/61
--- NOTE | 2016-11-19 13:30 | General Progress Note ---
Assessment/Plan Problem List: (1) Fever ICD Codes: R50.9 - Fever, unspecified SNOMED: 966877766 (2) Sepsis ICD Codes: A41.9 - Sepsis, unspecified organism SNOMED: [id number] Status: stable Assessment/Plan ID w/u check duplex legs abx follow up cultures ivf pain rx advance diet ?dc planning tomorrow if ok with all. will d/w ID if abx needed on dc Subjective ROS Limited/Unobtainable: No Constitutional: Reports: malaise, weakness HEENT: Reports: no symptoms Cardiovascular: Reports: no symptoms Respiratory: Reports: no symptoms Gastrointestinal/Abdominal: Reports: no symptoms Genitourinary: Reports: no symptoms Neurologic/Psychiatric: Reports: no symptoms Endocrine: Reports: no symptoms Hematologic/Lymphatic: Reports: no symptoms Allergies: Coded Allergies: No Known Allergies (Unverified , 06/02/15) All Systems: reviewed and negative except above Subjective fevers better. cultures negative. cxr negative. feels better. Objective Last 24 Hour Vital Signs Date Time Temp Pulse Resp B/P Pulse Ox O2 Delivery O2 Flow Rate FiO2 11/19/16 12:10 98.1 75 21 132/61 97 Room Air 11/19/16 08:15 97.7 90 20 150/59 95 Room Air 11/19/16 04:00 98.6 94 20 157/89 93 Room Air 11/19/16 00:00 99.0 78 20 140/63 96 Room Air 11/18/16 20:00 99.1 79 20 138/61 95 Room Air 11/18/16 16:17 98.2 81 20 149/72 97 Room Air Intake and Output 11/18/16 11/19/16 18:59 06:59 Intake Total 1065.0 ml 910.0 ml Balance 1065.0 ml 910.0 ml Intake Oral 520 ml 800 ml IV Total 545.0 ml 110.0 ml # Voids 4 2 # Bowel Movements 1 Laboratory Tests 11/19/16 06:30: White Blood Count 5.7, Red Blood Count 4.55, Hemoglobin 12.6, Hematocrit 39.4, Mean Corpuscular Volume 87, Mean Corpuscular Hemoglobin 27.8, Mean Corpuscular Hemoglobin Concent 32.1, Red Cell Distribution Width 12.8, Platelet Count 289, Mean Platelet Volume 7.0, Neutrophils (%) (Auto) 70.9, Lymphocytes (%) (Auto) 20.9, Monocytes (%) (Auto) 5.6, Eosinophils (%) (Auto) 1.5, Basophils (%) (Auto ) 1.2, Sodium Level 130L, Potassium Level 3.6, Chloride Level 88L, Carbon Dioxide Level 26, Anion Gap 16H, Blood Urea Nitrogen 6L, Creatinine 0.7, Estimat Glomerular Filtration Rate , Glucose Level 122H, Calcium Level 8.8, Magnesium Level 2.1, Total Bilirubin 0.9, Aspartate Amino Transf (AST/SGOT) 52H , Alanine Aminotransferase (ALT/SGPT) 53H, Alkaline Phosphatase 108H, Total Protein 7.4, Albumin 3.5, Globulin 3.9, Albumin/Globulin Ratio 0.8L Height (Feet): 5 Height (Inches): 9.00 Weight (Pounds): 254 Objective General Appearance: WD/WN, alert Neck: supple Cardiovascular: regular rhythm Respiratory/Chest: lungs clear, normal breath sounds, no respiratory distress, no accessory muscle use Abdomen: normal bowel sounds, non tender, soft, no organomegaly, no mass Edema: no edema noted Arm (L), no edema noted Arm (R), no edema noted Leg (L), no edema noted Leg (R), no edema noted Pedal (L), no edema noted Pedal (R), no edema noted Generalized OSBALDO AVENDANO Nov 19, 2016 13:30
[2016-11-19 15:33] VITALS: BP 155/74
[2016-11-19] MEDS ORDERED: Tubing IV Secondary IV ONE (16:35)
[2016-11-19 20:00] VITALS: BP 158/86
[2016-11-19] MEDS: TraZODone HCl 25 mg tablet ORAL SCH (20:51)
[2016-11-19] MEDS ORDERED: TraZODone HCl 25 mg tablet ORAL SCH (21:00)
[2016-11-20] VITALS: BP 153/68
--- NOTE | 2016-11-20 02:38 | Progress Note ---
DATE: 11/19/2016 CARDIOLOGY PROGRESS NOTE SUBJECTIVE: The patient is anxious to go home. She can't sleep at the hospital. She has no pain. She is not short of breath. She is afebrile. Cultures remain negative. OBJECTIVE: VITAL SIGNS: Blood pressure 150/60, pulse 90, respiratory rate 20. NECK: Supple. LUNGS: Clear. ABDOMEN: Soft and nontender. CARDIAC: Regular rate. Normal S1 and S2. No murmurs. EXTREMITIES: No edema. IMPRESSION: 1. Leukopenia, resolved. 2. Transaminitis, unchanged, but slightly improved from admission. 3. Hypertensive heart disease. 4. Gyt-[id number] diabetes mellitus. 5. Partially treated urinary tract infection on admission. 6. Possible hepatobiliary process. PLAN: Empiric antibiotics, hydration, and oral intake poor. Anxiolytics and insulin titration. Agree with discharge planning. Jorge Gay M.D. DR: LAN JOB#: [id number] CC:
--- NOTE | 2016-11-20 03:08 | Progress Note ---
DATE: 11/16/2016 LATE ENTRY CARDIOLOGY PROGRESS NOTE: SUBJECTIVE: The patient is still having fever spikes. She is withdrawn. She has night sweats. Less abdominal pain. No chest pain or shortness of breath. OBJECTIVE: VITAL SIGNS: Blood pressure is 142/92, pulse rate 87, and respiratory rate 17. NECK: Supple. LUNGS: Clear. No thrush. CARDIAC: Regular. Normal S1 and S2 with no murmur. ABDOMEN: Soft. EXTREMITIES: No focal tenderness or edema. LABORATORY DATA: Cultures are negative. DIAGNOSTIC DATA: Abdominal ultrasound is pending. IMPRESSION: 1. Transaminitis. 2. Fevers. 3. Leukopenia. 4. Labile hypertension. 5. Type 2 diabetes mellitus. 6. Mild dehydration and hypovolemia. PLAN: 1. Intravenous fluids. 2. Hold parameters for antihypertensives. 3. Monitor orthostatics. 4. Empiric antibiotics. 5. Follow up imaging studies. 6. Deep venous thrombosis prophylaxis. Jorge Gay M.D. DR: Ariel JOB#: [id number] CC:
--- NOTE | 2016-11-20 03:18 | Progress Note ---
DATE: 11/17/2016 CARDIOLOGY PROGRESS NOTE: Late entry for 11/17/2016 SUBJECTIVE: The patient is anxious to go home. She has had some fevers yesterday up to 100.9 degrees. She does feel somewhat better and has not had any more chills. OBJECTIVE: VITAL SIGNS: Blood pressure 145/59, pulse 86, and respiratory rate 18 . NECK: Supple. LUNGS: Clear. CARDIAC: Regular. Normal S1, S2. ABDOMEN: Soft. No focal tenderness. BACK: No CVA tenderness. EXTREMITIES: No edema. LABORATORY DATA: No new labs today with the exception of albumin 3.4. AST, ALT 54/57, and alkaline phosphatase 124. IMPRESSION: 1. Fevers. 2. Possible sepsis. 3. Hypokalemia. 4. Transaminitis. 5. Mild protein-calorie malnutrition. 6. Hypertensive heart disease. 7. Type 2 diabetes mellitus. PLAN: Hydration. Potassium replacement. Empiric antibiotics. Follow up imaging studies of the abdomen. Protein supplements. Insulin coverage by sliding scale. Jorge Gay M.D. DR: Jeff JOB#: [id number] CC:
--- NOTE | 2016-11-20 03:18 | Progress Note ---
DATE: 11/15/2016 CARDIOLOGY PROGRESS NOTE: SUBJECTIVE: The patient continues to have fevers, weakness, malaise, and some abdominal pain. Cultures are negative. The patient was partially treated for her urinary infection prior to admission. OBJECTIVE: VITAL SIGNS: Blood pressure is 131/56, pulse rate 75, respiratory rate 16, oxygen saturation on room air 93% to 97%, and 100.2 degrees T-max. NECK: Supple. No thrush. LUNGS: Clear. CARDIAC: Regular rhythm and rate. Normal S1 and S2 with a fourth heart sound. ABDOMEN: Soft. No CVA tenderness. No guarding or rebound. EXTREMITIES: Without edema. LABORATORY DATA: pending. White count is 2.6 and hemoglobin 12.7. Lactic acid is 1. Potassium is 3.8, BUN 7, and creatinine 0.7. AST and ALT are 67 and 73 and alkaline phosphatase 142. TSH is 3.2. IMPRESSION: 1. Fevers. 2. Possible sepsis. 3. Transaminitis. 4. Partially treated urinary tract infection. 5. Hypovolemia. 6. Dehydration. 7. Hypertensive heart disease. 8. Type 2 diabetes mellitus. PLAN: 1. Hydration. 2. Empiric antibiotics. 3. Imaging studies of the abdomen pending. 4. Hold parameters on antihypertensives. 5. Insulin coverage by sliding scale. 6. Deep venous thrombosis prophylaxis. Jorge Gay M.D. DR: Ariel JOB#: [id number] CC:
--- NOTE | 2016-11-20 03:38 | Consultation ---
DATE OF CONSULTATION: 11/14/2016 CARDIOLOGY CONSULTATION: REQUESTING PHYSICIAN: Brando Malone M.D. REASON FOR CONSULTATION: Fever and general malaise in the setting of hypertensive heart disease. HISTORY OF PRESENT ILLNESS: This 71-year-old female was seen in my office yesterday. She had some complaints of dysuria and abdominal discomfort. She was started on empiric antibiotics. Her symptoms worsened and she came to the emergency room. She has not had any chest pain or palpitations. She has not had any shortness of breath or leg swelling. She does note abdominal discomfort, some back pain, some frequency, and dysuria. PAST MEDICAL HISTORY: Hypertensive heart disease, osteoarthritis, degenerative disk disease, diabetes mellitus type 2, and cholelithiasis. MEDICATIONS: Medications prior to admission, reviewed and reconciled. ALLERGIES: None. FAMILY HISTORY: Notable for her daughter with HIV disease. REVIEW OF SYSTEMS: She has had fevers and chills. She has no loss of vision or hearing. No earache. No cough or sputum production. No chest pain or palpitations. An echocardiogram in the last six months revealed normal ejection fraction, concentric hypertrophy, and mild degenerative valve disease. No history of seizures or stroke. 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 There is no history of thyroid disorder. She has been on anti-lipid drugs in the past. She has not had any change in bowel habits. PHYSICAL EXAMINATION: VITAL SIGNS: Temperature 103.1 degrees, blood pressure 171/77, heart rate 92, and respiratory rate 18. HEENT: Conjunctivae are pink. Sclerae are anicteric. Oropharynx clear. Mucous membranes dry. No thrush. NECK: Supple. No jugular venous distention or adenopathy. LUNGS: Clear. CARDIAC: Regular rhythm and rate. Normal S1, S2 with a fourth heart sound. ABDOMEN: Soft. No focal tenderness. No CVA tenderness. No guarding or rebound. EXTREMITIES: No clubbing, cyanosis, or edema. The patient digits of the upper extremities that were amputated in the past. SKIN: Without rash or decubitus. LABORATORY DATA: Sodium 136, potassium 3.7, bicarb 26, BUN 7, and creatinine 0.7. AST and ALT 96/85, alkaline phosphatase 165. CK 230. Albumin 4. White count 2.5 and hemoglobin 13.5 with 10% bands. IMPRESSION: 1. Leukopenia with left shift. 2. Transaminitis. 3. Partially treated urinary tract infection. 4. Fevers. 5. Possible sepsis. 6. Type 2 diabetes mellitus. 7. Hypertensive heart disease. 8. Rhabdomyolysis, mild. 9. Possible cholecystitis . PLAN: Pancultured. Broad-spectrum antibiotics. Hydration. Hold parameters for antihypertensive. Insulin coverage by sliding scale. Imaging studies of the abdomen. Jorge Gay M.D. DR: Jeff JOB#: [id number] CC:
[2016-11-20 04:00] VITALS: BP 155/86
[2016-11-20] MEDS: Piperacillin/Tazobactam 3.375 GM in D5W 110 ML IVPB SCH ×2 (06:09→14:19)
[2016-11-20] MEDS: NovoLOG Insulin Flexpen SUBQ SCH ×2 (06:13→12:05)
[2016-11-20 08:00] VITALS: BP 135/80
[2016-11-20] MEDS: Lactobacillus-GG tablet ORAL SCH (08:38)
[2016-11-20] MEDS: Heparin 5000 units/ml inj SUBQ SCH (08:39)
[2016-11-20 12:00] VITALS: BP 155/88
--- NOTE | 2016-11-20 14:02 | Infectious Diseases Prog Note ---
Assessment/Plan Assessment/Plan A 1. UTI 2. Transaminitis 3. DM 4. HPN 5. Leukopenia resolved P 1. continue Zosyn 2. will follow up cultures Subjective ROS Limited/Unobtainable: No Constitutional: Reports: no symptoms Respiratory: Reports: dry cough Cardiovascular: Reports: no symptoms Gastrointestinal/Abdominal: Reports: no symptoms Genitourinary: Reports: no symptoms Allergies: Coded Allergies: No Known Allergies (Unverified , 06/02/15) Objective Vital Signs Last 24 Hour Vital Signs Date Time Temp Pulse Resp B/P Pulse Ox O2 Delivery O2 Flow Rate FiO2 11/20/16 12:00 98.1 92 20 155/88 100 Room Air 11/20/16 08:00 99.5 83 20 135/80 93 Room Air 11/20/16 04:00 98.7 83 18 155/86 95 Room Air 11/20/16 00:00 97.0 73 18 153/68 95 Room Air 11/19/16 21:53 98.5 11/19/16 20:00 99.9 82 18 158/86 95 Room Air 11/19/16 15:33 97.9 84 21 155/74 96 Room Air Height (Feet): 5 Height (Inches): 9.00 Weight (Pounds): 254 General Appearance: no acute distress HEENT: mucous membranes moist Respiratory/Chest: lungs clear Cardiovascular: normal rate Abdomen: soft, non tender Extremities: other - pedal edema Neurologic/Psychiatric: alert, oriented x 3, responsive Current Medications Medications (Trade) Dose Ordered Sig/Kentrell Route PRN Reason Start Time Stop Time Status Last Admin Dose Admin Acetaminophen 650 mg 650 mg Q4H PRN ORAL Mild Pain/Temp > 100.5 11/15/16 03:15 12/15/16 03:14 11/19/16 20:54 Artificial Tears 2 drop 2 drop EVERY 4 HOURS PRN LEFT EYE Dry Eyes 11/16/16 14:00 12/16/16 13:59 11/17/16 15:02 Clonazepam (KlonoPIN) 1 mg Q6H PRN ORAL For Anxiety 11/15/16 03:15 11/22/16 03:14 11/19/16 23:53 Clonidine HCl (Catapres) 0.1 mg Q4H PRN ORAL SBP above 150 11/15/16 03:00 12/15/16 02:59 11/17/16 16:50 Dextrose (Dextrose 50%) STAT PRN IV Hypoglycemia 11/15/16 03:00 12/15/16 02:59 Guaifenesin/ Codeine Phosphate (Robitussin with codeine) 5 ml Q6H PRN ORAL For Cough 11/16/16 18:15 12/16/16 18:14 11/17/16 09:09 Heparin Sodium (Porcine) (Heparin 5000 units/ml) 5,000 units EVERY 12 HOURS SUBQ 11/15/16 21:00 12/15/16 20:59 11/20/16 08:39 Insulin Aspart (NovoLOG) BEFORE MEALS AND HS SUBQ 11/15/16 06:30 12/15/16 06:29 11/20/16 12:05 Lactobacillus Acidophilus (Culturelle) 1 tab TWICE A DAY ORAL 11/15/16 09:00 12/15/16 08:59 11/20/16 08:38 Latanoprost (Xalatan) 1 drop BEDTIME BOTH EYES 11/15/16 21:00 12/15/16 20:59 11/19/16 20:51 Piperacillin Sod/ Tazobactam Sod/ Dextrose (Zosyn/D5W) 110 ml @ 27.5 mls/hr Q8HR IVPB 11/15/16 14:00 11/22/16 05:59 11/20/16 06:09 Sodium Chloride (Sodium Chloride 1000ml bag) 1,000 ml @ 100 mls/hr Q10H IV 11/16/16 18:30 12/16/16 18:29 11/20/16 12:06 Trazodone HCl (Desyrel) 25 mg BEDTIME ORAL 11/18/16 23:30 12/18/16 23:29 11/19/16 20:51 BETTY TOLBERT Nov 20, 2016 14:02
--- NOTE | 2016-11-20 23:37 | Progress Note ---
DATE: 11/20/2016 CARDIOLOGY PROGRESS NOTE: SUBJECTIVE: The patient has not had any new fevers. No chills. No shortness of breath, nausea, or vomiting. OBJECTIVE: VITAL SIGNS: T-max 99.5, blood pressure 135/80, and pulse 83. NECK: Supple. LUNGS: Clear. CARDIAC: Regular with no new murmur. ABDOMEN: Soft. EXTREMITIES: No edema. LABORATORY DATA: No new labs. Cultures remain negative. IMPRESSION: 1. Probable viral syndrome, recovering. 2. Chronic diastolic congestive heart failure. 3. Hypertensive heart disease with controlled blood pressure. 4. Type 2 diabetes mellitus, stable. 5. Transaminitis with slow improvement. 6. Urinary tract infection, status post treatment. PLAN: 1. Discontinue IV therapy. 2. Outpatient followup. 3. Medications reviewed. 4. The patient advised to resumption of baseline cardiovascular regimen withhold parameters. Jorge Gay M.D. DR: MONIQUE JOB#: [id number] CC:
--- NOTE | 2016-11-21 00:28 | Discharge Summary ---
DATE OF ADMISSION: 11/14/2016 DATE OF DISCHARGE: 11/20/2016 ADMISSION DIAGNOSES: 1. Fever. 2. Rule out sepsis. 3. Hypertension. 4. Hypertensive heart disease. 5. History of diabetes. DISCHARGE DIAGNOSES: 1. Fever. 2. Rule out sepsis. 3. Hypertension. 4. Hypertensive heart disease. 5. History of diabetes. 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 She was treated with oral antibiotic therapy, but had worsening fevers, chills, shortness of breath, malaise and weakness. She was therefore admitted. Her workup here at the hospital was unremarkable. She had a chest x-ray that was clear. She was noted to have mild elevation of liver function tests as well as leukopenia. Her leukopenia resolved. All her cultures were negative. She had a CAT scan of the abdomen that was also unremarkable except for some gallstones. On discharge, she was well. She will be discharged home with close outpatient followup. She has been instructed to return for any worsening fevers or chills. DISCHARGE MEDICATIONS: Please see discharge list for discharge medications. DIET: Cardiac, diabetic diet. ACTIVITIES: Ad-jorge. FOLLOWUP: The patient will be followed up in one week in the office. Brando Malone M.D. DR: GUILLE JOB#: [id number] CC:
== END 2016-11-20 15:42 | disposition home or self-care (01) | DRG 872 ==
LOC: EMR 21:15 → EDBEDREQ 23:47 → EDBEDREQSVC 23:47 → 4E 23:54 → EDBEDREQ 23:55
DX: A41.9 Sepsis, unspecified organism (principal); M62.82 Rhabdomyolysis; R16.0 Hepatomegaly, not elsewhere classified; I11.0 Hypertensive heart disease with heart failure; I50.32 Chronic diastolic (congestive) heart failure; E44.1 Mild protein-calorie malnutrition; N39.0 Urinary tract infection, site not specified; K80.20 Calculus of gallbladder without cholecystitis without obstruction; E86.0 Dehydration; R94.5 Abnormal results of liver function studies; Z68.37 Body mass index [BMI] 37.0-37.9, adult; E86.1 Hypovolemia; R74.0 Nonspecific elevation of levels of transaminase and lactic acid dehydrogenase [LDH]
CPT/HCPCS: 36415; 71010; 71020; 74176; 76700; 80053; 80076; 81003; 82248; 82550; 82553; 82962; 83605; 83735; 83880; 84443; 84484; 85007; 85025; 86710; 87040; 87086; J1815

== ENCOUNTER 2016-12-17 13:00 | Outpatient (RCR) | payer MEDICARE ==
[~2016-12-17 13:00] MED LIST changes: +AMLODIPINE BESY10 MG ORAL; +CLONIDINE0.1 MG GT; +KLONOPIN1 MG ORAL; +LOPRESSOR25 M1 ORAL; +METFORMIN HCL1000 M1 ORAL; +SYNTHROID50 MCG ORAL; +XALATAN2.5 ML BOTH EYES
== END 2016-12-24 | disposition home or self-care (01) ==
LOC: PTY 13:00
DX: M16.31 Unilateral osteoarthritis resulting from hip dysplasia, right hip (principal); M51.36 Other intervertebral disc degeneration, lumbar region
CPT/HCPCS: 97110; 97140; 97161; 97530; G8978; G8979

== ENCOUNTER 2016-12-30 14:05 | Outpatient (RCR) | payer MEDICARE | END 2017-01-23 | disposition home or self-care (01) | LOC: PTY 14:05 | DX: M51.36 Other intervertebral disc degeneration, lumbar region (principal); M16.31 Unilateral osteoarthritis resulting from hip dysplasia, right hip | CPT/HCPCS: 97110; 97140; G0283 ==

== ENCOUNTER 2017-02-12 15:00 | Outpatient (RCR) | payer MEDICARE | END 2017-02-23 | disposition home or self-care (01) | LOC: PTY 15:00 | DX: M16.31 Unilateral osteoarthritis resulting from hip dysplasia, right hip (principal); M51.36 Other intervertebral disc degeneration, lumbar region | CPT/HCPCS: 97110; 97140; G0283 ==

== ENCOUNTER 2018-02-05 13:30 | Outpatient (RCR) | payer MEDICAID, MEDICARE | END 2018-02-23 | disposition home or self-care (01) | LOC: PTY 13:30 | DX: M51.17 Intervertebral disc disorders with radiculopathy, lumbosacral region (principal) | CPT/HCPCS: 97110; 97161; G8978; G8979 ==

== ENCOUNTER 2018-03-11 10:50 | Outpatient (RCR) | payer MEDICARE | END 2018-03-26 | disposition home or self-care (01) | LOC: PTY 10:50 | DX: M54.31 Sciatica, right side (principal); M51.17 Intervertebral disc disorders with radiculopathy, lumbosacral region; I10 Essential (primary) hypertension ==

== ENCOUNTER 2019-05-21 15:16 | Emergency (ER) | payer MEDICARE ==
[~2019-05-21] VITALS: Ht 152.4 cm; Wt 120.2 kg
[2019-05-21 15:48] VITALS: BP 180/98
--- NOTE | 2019-05-21 15:58 | NUR ---
ED Nurse Note: PT WALKED IN DUE TO FACIAL PAIN AND RUNNY NOSE X 1 WEEK. DENIES FEVER OR CHILLS. AAO X4 AND AMBULATORY
[2019-05-21] MEDS ORDERED: CETIRIZINE-PSE1 EACH PO (16:06)
--- NOTE | 2019-05-21 16:08 | Emergency Room Report ---
History of Present Illness General Chief Complaint: Upper Respiratory Illness Source: Patient, Medical Record Present Illness HPI 73-year-old female history of hypertension, history of sinusitis presents with facial pain, congestion x7 days, recently started taking drops from her doctor, no fevers no chills, no changes in vision, severity is mild, constant achy pain , worsened with congestion, no nausea no vomiting, no chest pain or shortness of breath. Patient presents for evaluation Allergies: Coded Allergies: No Known Allergies (Unverified , 06/02/15) Patient History Past Medical History: see triage record Reviewed Nursing Documentation: PMH: Agreed; PSxH: Agreed Nursing Documentation-PMH Past Medical History: No History, Except For Hx Cardiac Problems: Yes - hypothyroism Hx Hypertension: Yes Hx Diabetes: Yes Hx Cancer: No Hx Gastrointestinal Problems: No Hx Neurological Problems: No Review of Systems All Other Systems: negative except mentioned in HPI Physical Exam Vital Signs Date Time Temp Pulse Resp B/P (MAP) Pulse Ox O2 Delivery O2 Flow Rate FiO2 05/21/19 15:48 98.2 85 16 180/98 (125) 94 Room Air Sp02 EP Interpretation: reviewed, normal General Appearance: well appearing, no apparent distress, alert Head: normocephalic, atraumatic Eyes: bilateral eye PERRL, bilateral eye EOMI ENT: uvula midline, moist mucus membranes, nasal congestion, other - Transillumination of the sinuses positive, reduced patency in the right sinus Neck: supple, thyroid normal, supple/symm/no masses Respiratory: lungs clear, no respiratory distress, no retraction, no accessory muscle use Cardiovascular #1: normal peripheral pulses, regular rate, rhythm, no edema, no gallop, no murmur Gastrointestinal: non tender, soft, no guarding, no rebound Musculoskeletal: normal inspection Neurologic: alert, oriented x3 Psychiatric: mood/affect normal Skin: no rash, warm/dry Medical Decision Making Diagnostic Impression: Primary Impression: Sinusitis Qualified Codes: J01.11 - Acute recurrent frontal sinusitis ER Course Patient with sinusitis, counseled patient to try symptomatic care, if not better will start antibiotics, patient is below the 14-day window. Strict return precautions Dispo home Last Vital Signs Date Time Temp Pulse Resp B/P (MAP) Pulse Ox O2 Delivery O2 Flow Rate FiO2 05/21/19 15:58 87 18 Room Air 05/21/19 15:48 98.2 180/98 94 Disposition: HOME, SELF-CARE Condition: Stable Scripts Cetirizine Hcl/Pseudoephedrine (CETIRIZINE-PSE ER 5-120 MG TAB) 1 Each Tab.er.12h 1 EACH PO Q12HR, #30 TAB Prov: Trell Isbell MD 05/21/19 Referrals: Jorge Gay MD, Kirk M. MD Patient Instructions: Sinusitis, Adult, [id number] Additional Instructions: The patient was provided with discharge instructions, notified to follow-up with a primary care doctor and or specialist in the next 24-48 hours, and to return to the ED if they have worsening of their symptoms. Please note that this report is being documented using theRightAPI technology. This can lead to erroneous entry secondary to incorrect interpretation by the dictating instrument. CONSIDER NETI POT IF NOT BETTER IN 4 DAYS WILL TRY ANTIBIOTICS Trell Isbell MD May 21, 2019 16:08
[2019-05-21 16:12] VITALS: BP 167/90
--- NOTE | 2019-05-21 16:12 | NUR ---
ER DISCHARGE NOTE: Patient is cleared to be discharged per ERMD, pt is aox4, on room air, with stable vital signs. pt was given dc and prescription instructions, pt was able to verbalize understanding, pt id band removed. pt is able to ambulate with steady gait. pt took all belongings and left with a family member.
== END 2019-05-21 16:12 | disposition home or self-care (01) ==
LOC: EMR 15:47
DX: J01.11 Acute recurrent frontal sinusitis (principal); E11.9 Type 2 diabetes mellitus without complications; I10 Essential (primary) hypertension; E03.9 Hypothyroidism, unspecified
CPT/HCPCS: 99282